=== PATIENT | male | born 1995 | race Caucasian/White ===

== ENCOUNTER 2017-03-09 08:37 | Day surgery (SDC) | payer OTHER ==
[~2017-03-09] VITALS: Ht 172.7 cm; Wt 57.0 kg
[~2017-03-09 08:37] MED LIST: 0.9% Sodium Chloride 1,000 ML IV SCH; DEXT10CA2 PO; DEXT5TAB PO; DEXT5TAB23 PO; FLUT16SP NS; OMEP20CA11 PO; Sodium Chloride LOK Flush 10 mL Syringe IV PRN; fentaNYL-PF 50 mCg/mL 2 mL Inj IVPUSH PRN
[2017-03-09 09:07] VITALS: BP 109/66; PULSE 71; RESP 14; O2SAT 98
[2017-03-09 09:56] VITALS: BP 104/60; PULSE 76; RESP 13; O2SAT 98
[2017-03-09 10:06] VITALS: BP 97/55; PULSE 68; RESP 16; O2SAT 99
--- NOTE | 2017-03-09 10:07 | ENDO ---
[address] [address] ENDOSCOPY PROCEDURE PATIENT: MARIA DEL ROSARIO CUMMINGS : 1995 MR#: [id number] ADMIT: 03/09/2017 JOB ID: [id number] OPERATION: Esophagogastroduodenoscopy and biopsy. PREOPERATIVE DIAGNOSIS(ES): 1. Epigastric pain. 2. Gastroesophageal reflux disease. POSTOPERATIVE DIAGNOSIS(ES): 1. Mild distal esophagitis. 2. Concentric rings with vertical furrows suspicious for eosinophilic esophagitis status post biopsy of the distal esophagus. ANESTHESIA: Fentanyl 100 mcg, Versed 5 mg IV administered. COMPLICATIONS: None. ESTIMATED BLOOD LOSS: Minimal. DESCRIPTION OF PROCEDURE: After risks and benefits to the patient, informed consent was obtained. After anesthesia administered, upper endoscope was then inserted into the mouth and intubated into the esophagus, stomach, second portion of duodenum. Mucosa carefully examined. After procedure was done, the scope withdrawn and procedure terminated. FINDINGS: Upon inspection of the esophagus, there was concentric rings and vertical furrows seen throughout the entire esophagus, suspicious for eosinophilic esophagitis. There is also mild distal soft esophagitis that was seen. Biopsies taken mid and distal esophagus. Z-line located 40 cm from incisors. Upon entering the stomach, the stomach was normal without masses, ulcers, or lesions. Retroflexion normal. Duodenal bulb, first and second portion normal. Biopsies taken antrum and body of the stomach. IMPRESSIONS: 1. Concentric rings and vertical furrows throughout the esophagus suspicious for eosinophilic esophagitis status post biopsy. 2. Mild distal esophagitis. RECOMMENDATION: 1. Await pathology results. 2. Stop marijuana. 3. Continue omeprazole 20 mg by mouth once a day.
[2017-03-09 10:16] VITALS: BP 96/55; PULSE 68; RESP 16; O2SAT 99
[2017-03-09 10:40] VITALS: BP 101/58; PULSE 72; RESP 14; O2SAT 100
--- NOTE | 2017-03-10 10:13 | PATH ---
SURGICAL PATHOLOGY Attending Physician:Jose Preston MD CASE STATUS: Signed Out PATIENT NAME: MARIA DEL ROSARIO CUMMINGS PID: [id number] : 1995 DATE COLLECTED:03/09/2017 15:51 SPECIMEN: 1: Stomach, Antrum, Biopsy 2: Gastric, Biopsy 3: Esophagus, Biopsy 4: Esophagus, Biopsy CLINICAL HISTORY: 1. ANTRUM BX 2. BODY BX 3. DISTAL ESOPHAGUS BX 4. MID ESOPHAGUS BX R/O EOSINOPHILIC ESOPHAGUS FINAL DIAGNOSIS: 1.ANTRUM BIOPSY: MILD CHRONIC GASTRITIS INVOLVING ANTRAL MUCOSA. Negative for evidence of Helicobacter. Negative for intestinal metaplasia. Negative for dysplasia and malignancy. 2.GASTRIC BODY BIOPSY: MILD CHRONIC GASTRITIS INVOLVING FUNDIC MUCOSA. Negative for evidence of Helicobacter. Negative for intestinal metaplasia. Negative for dysplasia and malignancy. 3.DISTAL ESOPHAGUS BIOPSY: SQUAMOUS EPITHELIUM WITH NO GASTRIC-TYPE EPITHELIUM IDENTIFIED. INTRAEPITHELIAL EOSINOPHILS PRESENT NUMBERING UP TO 5 PER HIGH-POWERED FIELD WITH ASSOCIATED REACTIVE EPITHELIAL CHANGES (SEE COMMENT). 4.MID ESOPHAGUS BIOPSY: SQUAMOUS EPITHELIUM WITH INTRAEPITHELIAL EOSINOPHILS NUMBERING UP TO 25 PER HIGH-POWERED FIELD WITH ASSOCIATED REACTIVE EPITHELIAL CHANGES CONSISTENT WITH EOSINOPHILIC ESOPHAGITIS (SEE COMMENT). ICD10 CODE K20.0 NOTE: The presence of eosinophils within the distal esophagus could be due to chronic reflux. In this case, however, when they are associated with larger numbers of eosinophils present in the mid esophagus it is most consistent with eosinophilic esophagitis. GROSS DESCRIPTION: The specimen is received in four formalin filled containers labeled with the patient's name. 1). The specimen is sublabeled "antrum" and consists of 2 portions of tissue which aggregate to 0.3 x 0.3 x 0.2 CM. The specimen is entirely submitted in cassette 1A. 2). The specimen is sublabeled "gastric body" and consists of 3 portions of tissue which aggregate to 0.4 x 0.3 x 0.3 CM. The specimen is entirely submitted in cassette 2A. 3). The specimen is sublabeled "distal esophagus" and consists of 3 portions of tissue which aggregate to 0.3 x 0.3 x 0.2 CM. The specimen is entirely submitted in cassette 3A. 4). The specimen is sublabeled "mid esophagus" and consists of 2 portions of tissue which aggregate to 0.2 x 0.2 x 0.1 CM. The specimen is entirely submitted in cassette 4A. 03/09/2017 DAC MICRO DESCRIPTION: See diagnosis. ICD-9 CODES: CPT CODES: 1: 06391 2: 47020 3: 52144 4: 29271 Electronically Signed Out Enrique Taylor MD [facility] [address], [place] [address] Technical component performed at [facility], [address], [place], [address]
== END 2017-03-09 23:59 | disposition home or self-care (01) ==
LOC: END 08:37
PROVIDERS: ATTEND Internal Medicine Gastroenterology
DX: K29.50 Unspecified chronic gastritis without bleeding (principal); K20.0 Eosinophilic esophagitis; K21.9 Gastro-esophageal reflux disease without esophagitis; F98.8 Other specified behavioral and emotional disorders with onset usually occurring in childhood and adolescence; F17.210 Nicotine dependence, cigarettes, uncomplicated; J30.1 Allergic rhinitis due to pollen
CPT/HCPCS: 43239; G0500; J7030

== ENCOUNTER → 2017-05-10 | Day surgery (SDC) | payer OTHER ==
[2017-05-10] VITALS (9 sets, daily range): BP systolic 114–128; BP diastolic 49–66; PULSE 71–94; RESP 4–19; O2SAT 98–100
[~2017-05-10] VITALS: Ht 175.3 cm; Wt 63.0 kg
[~2017-05-10] MED LIST changes: -0.9% Sodium Chloride 1,000 ML IV SCH; +Bupivacaine-MPF 0.5% 30 mL Inj INFILTRATE ONE; -DEXT10CA2 PO; +DEXT10TA8 PO; -DEXT5TAB PO; +Dexamethasone 4 mg/mL Inj IVPUSH PRN; +Dexamethasone 4 mg/mL Inj ONE; +EPHEDrine Sulfate 50 mg/mL Inj IVPUSH PRN; +EPHEDrine/NS 5 mg/mL 5 mL Syringe ONE; -FLUT16SP NS; +Glycopyrrolate 0.2 MG/ML 1mL Inj ONE; +HYDROmorphone 1 mg/mL Inj IVPUSH PRN; +Lactated Ringer's 1,000 ML IV SCH; +Lactated Ringer's 500 ML IV PRN; +Levofloxacin 500 mg/100 mL D5W IV ONE; +MetoCLOpramide 5 mg/mL 2 mL Inj IVPUSH PRN; +Neostigmine 1 mg/mL 10 mL Inj ONE; -OMEP20CA11 PO; +OMEP20TA86 PO; +Ondansetron 2 mg/mL 2 mL Inj IVPUSH PRN; +Ondansetron 2 mg/mL 2 mL Inj ONE; +Phenylephrine 10,000 mCg/mL Inj IVPUSH PRN; +Propofol 10,000 mCg/mL 20 mL Inj ONE; +Remifentanil 1 mg/3 mL Inj ONE; +Rocuronium 10 mg/mL 5 mL Inj ONE; -Sodium Chloride LOK Flush 10 mL Syringe IV PRN; +fentaNYL-PF 50 mCg/mL 2 mL Inj ONE; +oxyCODONE-Acetamin 5-325 mg Tablet PO PRN
[2017-05-10] MEDS: Lactated Ringer's 1,000 ML IV SCH ×2 (05:45→07:28)
--- NOTE | 2017-05-10 08:10 | PCM.HPANE ---
Patient Data Surgeon Admitting Provider: Attending Provider:Janette Green MD Primary Care Physician:Dee Cruz Other Provider:Gerda Ashley Anesthesia Reason for Visit Gallstone Pancreatitis Ht/WT & BMI Height (Feet): 5 Height (Inches): 9.00 Weight (Kilograms): 63.000 Body Mass Index 20.00 Allergies Coded Allergies: No Known Drug Allergies (Verified Allergy, Unknown, 05/03/17) Uncoded Allergies: STRAWBERRIES, CHERRIES, BLUEBERRIES (Allergy, Unknown, throat swelling, ) can tolerate fruit when it is cooked- reaction to most fruit in raw state Past Anesthesia History Anesthesia History: Denies:: Abnormal Airway, Anesthesia Reactions, Difficult Intubation, Fam Anesthesia Reaction, Fam Malignant Hypertherm, Malignant Hyperthermia Diabetes History Hx Diabetes?: No MRSA MRSA: No Medications Hypertension Medication: No Home Meds Incl Beta Ned: No Reported Medications Omeprazole 20 Mg Tablet.dr20 Mg PO BID Ref 0 05/03/17 Discontinued Reported Medications Dextroamphetamine/Amphetamine (Adderall)5 Mg Tablet5 Mg PO QPM Ref 0 05/03/17 Dextroamphetamine/Amphetamine (Adderall)10 Mg Zetamx19 Mg PO QAM Ref 0 05/03/17 Omeprazole 20 Mg Capsule.dr20 Mg PO DAILY Ref 0 03/08/17 History History of ENT Problems?: No HEENT History: Denies:: Abnormal Airway Difficult Intubation Dysphagia Hearing Problem Sinus Problem Denture Type: None Teeth Condition: Within Normal Limits Hx of Heart Problems?: No Cardiovascular History: Denies:: Congestive Heart Failure Hypertension Hx of Respiratory Problem?: No Respiratory History: Denies:: Asthma COPD Emphysema Oxygen Administration Tuberculosis Use of C-PAP Machine Use of Inhalers / NEBS Hx Neurologic Problems?: No Neurological History: Denies:: CVA Dementia Dizziness Multiple Sclerosis Parkinson's Disease Seizures Hx of GI Problems?: Yes Hx of Problems?: No Male Hx: Denies:: Prostate Problems Scrotal Mass Testicular Surgery Skin History: Denies:: History Skin Disorders? Pressure Ulcers Hx Musculoskeletal Problems?: No Musculoskeletal History: Denies:: Joint Replacement Musculoskeletal Trauma Myasthenia Gravis Osteoarthritis Hx of Psycho/Social Problems?: Yes Psycho Social History: Denies:: Anxiety Hx Depression Hx Surgeries?: Yes (dental as child) Hx Any Other Health Problems?: Yes Other History: Denies:: Cancer Thyroid Disease Hx Diabetes: No Hx Alcohol Use: YesAlcoholic Drinks Per Day: 1-2 drinks weeklyHx Substance Use : Yes (marijuana daily (inhales)) Smoking Status: Current Some Day Smoker Have You Smoked inLast 12 mo: Yes Stop/Bang S-Snoring: Do You Snore Loudly: No T-Tired: feel tired, fatigued: No O-Obsered: Observed not breath: No P-Blood Pressure: treated: No B- Body Mass Index > 35 kg/m2: No A- Age over 50: No N- Neck Large Circumference: No G- Gender Male: Yes JOSE Total Score: 1 JOSE Risk Assessment: Low Risk, <3 Yes Risk Assessment Category Category 1A: Patient has history of documented sleep apnea, and HAS NOT received any narcotic, sedative or anesthesia administration during this stay. Category 1B: Patient has history of documented sleep apnea, and HAS received any narcotic , sedative or anesthesia administration during this stay Category 2: Patient has SUSPECTED Obstructive Sleep Apnea, and HAS received any narcotic , sedative or anesthesia administration during this stay. Category 3: Patient has SUSPECTED Obstructive Sleep Apnea and HAS NOT received narcotic, sedative or anesthesia administration during this stay. Category 4: Outpatient in Procedural Areas with known sleep apnea or who screen positive for High Risk via the STOP/BANG questionnaire. Exam Exam Vital Signs Vital Signs Date Time Temp Pulse Resp B/P Pulse Ox O2 Delivery O2 Flow Rate FiO2 05/10/17 06:12 36.3 71 16 124/66 100 Room Air General Appearance: Alert HEENT/AIRWAY: MP 2, Neck Movement (from, 3 fb) Lungs: Clear to Auscultation Heart: Regular Rate/Rhythm Meds/Labs/Diagnostics Admission Meds Current Medications Lactated Ringer's (Lr) 1,000 ml @ 120 mls/hr Q8H20M IV Last administered on 05:45; Start 05/10/17 at 05:00; Stop 05/10/17 at 13:19 Gabapentin (Neurontin) 600 mg PREOP ONCE PO Last administered on 05/10/17 06: 00; Start 05/10/17 at 06:00; Stop 05/10/17 at 06:01; Status DC Celecoxib (CeleBREX) 200 mg PREOP ONCE PO Last administered on 05/10/17 06:00 ; Start 05/10/17 at 06:00; Stop 05/10/17 at 06:01; Status DC Scopolamine (Transderm-Scop Patch) 1.5 mg ONCE ONCE TOPICAL Last administered on 05/10/17 06:00; Start 05/10/17 at 05:00; Stop 05/10/17 at 05:01; Status DC Acetaminophen (Tylenol) 650 mg PREOP ONCE PO Last administered on 05/10/17 06 :00; Start 05/10/17 at 06:00; Stop 05/10/17 at 06:01; Status DC Plan Impression Patient chart reviewed, patient interviewed and anesthestic plan with risks, benefits, and alternatives discussed, and informed consent obtained. NPO per Anesth. Guidelines: Yes ASA Physical Status: ASA2 Mod Systemic Disease Anesthetic Plan: GA Bene/Risks/Altern/Consents: Yes HP Complete Prior to Induction: Yes Other Discussed GETA. All questions were answered and he agrees to proceed. Norman Carter MD May 10, 2017 07:08
--- NOTE | 2017-05-10 09:57 | PCM.ANEP1 ---
Post Anesthesia PACU Phase 1 Assessment Vital Signs Vital Signs Date Time Temp Pulse Resp B/P Pulse Ox O2 Delivery O2 Flow Rate FiO2 05/10/17 09:50 37 82 17 128/59 100 Simple Mask 10 05/10/17 06:12 36.3 71 16 124/66 100 Room Air Anesthetic Administered: GA Level of Alertness: Awake, talking FIGUEROA's with Equal Strength: Yes Pain: No Nausea or Vomiting: No CV Function & Hydration Stable: Yes Airway Device: Oxygen Delivery: Simple Mask Lungs: Clear to Auscultation Dermatome Level: Full Sensation PACU Phase 2 Assessment Complications: No Follow up Care: No Patient Instructions Provided: N/A Norman Carter MD May 10, 2017 09:57
--- NOTE | 2017-05-10 09:57 | PCM.DISURG ---
Surgical Discharge Instruction Date of Service May 10, 2017 Dates of Hospitalization Date of Hospital Admission Providers Admitting Physician: Primary Care Physician: Dee Cruz Attending Physician: Janette Green MD Diet Discharge Diet: No restrictions Activity Discharge Activity-General: Be up and about, Activity as pain allows, No lifting >15 pounds for 2 weeks, No driving while taking narcotic Dressing and Incisional Care Dressing Care: Allow Steri Stripes to fall off, Remove outer dressing after 24 hrs Hygiene: May shower after (24 hours), DO NOT soak incision under water, NO bathtub, hot tub or whirlpool Follow Up Plan Follow Up Plan Follow up in the general surgery clinic in the next 2-4 weeks. Call at any time with questions or concerns. Call your provider for: Fever, Chills, Increasing abdominal pain, Nausea, Vomiting, Wound redness, Increasing wound pain, Discharge @ incision, pus discharge Logan Dietz MD May 10, 2017 09:57
--- NOTE | 2017-05-10 10:08 | OP ---
[address] [address] OPERATIVE REPORT PATIENT: MARIA DEL ROSARIO CUMMINGS : 1995 MR#: [id number] ADMIT: 05/10/2017 JOB ID: [id number] DATE OF SURGERY: 05/10/2017 PREOPERATIVE DIAGNOSIS(ES): Cholelithiasis. POSTOPERATIVE DIAGNOSIS(ES): Cholelithiasis. PROCEDURE PERFORMED: Laparoscopic cholecystectomy with cholangiogram. SURGEON: Janette Green MD ZIGZAG MACHINE OPERATOR: Logan Dietz MD and Hernandez Benites MS-3. COMPLICATIONS: None. PROCEDURE PERFORMED: Laparoscopic cholecystectomy with cholangiogram. INDICATIONS: The patient is a 21-year-old gentleman who has been struggling with intermittent abdominal pain over the last year. He went to the emergency department as early as August 2016 and was diagnosed with gallstones, but he has never met a surgeon before. He then was seen by Dr. Preston in Gastroenterology who had an upper endoscopy and then had a repeat CT and ultrasound and saw me in surgical consultation in March. After discussing the risks, benefits, and alternatives, he is here today for a lap hari with cholangiogram. PROCEDURE DETAILS: He was placed in a supine position, underwent smooth induction of general anesthesia. Abdomen was prepped and draped in the usual sterile fashion. Surgical time-out was undertaken using safety checklist, and all were in agreement. Began by making an infraumbilical incision and entered the abdomen using open Leidy technique and Optiview trocar. We then up sized to a 12 mm and then placed three 5 mm ports one in the epigastrium and two in the right upper quadrant. Then retracted the gallbladder cephalad to the right with the patient in reverse Trendelenburg position and dissected with the triangle of Calot anteriorly and posteriorly and divided the cystic artery between clips. We then dissected the cystic duct and clipped the duct towards the specimen and obtained a cholangiogram, which showed normal anatomy with no filling defects. After that we removed the cholangiogram catheter and clipped the cystic duct doubly on the patient's side and divided the duct. We then dissected the gallbladder off the liver bed. We did get into the gallbladder with some spillage of bile, but we irrigated and suctioned out all the bile from the right upper quadrant after placing the gallbladder in an EndoCatch bag. After ensuring good hemostasis, we removed the gallbladder within the EndoCatch bag through the umbilical port site after enlarging the fascial incision. We then closed the fascia with [id number] 0-Vicryl suture. The skin was reapproximated with 4-0 Monocryl. Steri-Strips and sterile dressing were applied. Patient was recovered from anesthesia and was taken to the recovery room in stable condition. ADELITA
--- NOTE | 2017-05-10 12:03 | DRSVH ---
PROCEDURE: X-RAY OPERATIVE CHOLANGIOGRAM ([id number]) INDICATIONS: GALLSTONE PANCREATITIS COMPARISON: [facility], CT, CT ABD PELVIS W CON, 04/13/2017, 11:45. [facility] al, US, US ABDOMEN, 04/13/2017, 10:09. FINDINGS: Biliary ducts: The surgeon injected contrast into the biliary ducts after cannulation of the cystic duct. Visualized intra- and extrahepatic bile ducts are normal in caliber, without strictures. Sever al small intraluminal filling defects seen within the distal common bile duct just proximal to the am alla. No evidence for iatrogenic ductal injury. Duodenum: Contrast flows promptly through the sphincter of Oddi into the duodenum, which appears nor mal in caliber. IMPRESSION: Several small distal common bile duct filling defects just proximal to the ampulla which could be related to retained stones and/or tumefactive sludge. Recommend clinical correlation with r eal-time examination and if indicated ERCP or MRCP could be performed. Dictated by: Cory Amaya [facility] Interpreted: Esteban Reyes MD on 05/10/2017 at 10:28 Approved by: Esteban Reyes M.D. on 05/10/2017 at 12:01
--- NOTE | 2017-05-12 09:58 | PATH ---
SURGICAL PATHOLOGY Attending Physician:Janette Green MD CASE STATUS: Signed Out PATIENT NAME: MARIA DEL ROSARIO CUMMINGS PID: [id number] : 1995 DATE COLLECTED:05/10/2017 16:39 SPECIMEN: Gallbladder CLINICAL HISTORY: GALLSTONE, PANCREATITIS 1). GALLBLADDER FINAL DIAGNOSIS: Gallbladder, Cholecystectomy: - Cholelithiasis and chronic cholecystitis. - Negative for neoplasm. ICD10: K80 K81.1 GROSS DESCRIPTION: The specimen is received in one formalin filled container labeled with the patient's name, sub labeled "gallbladder" and consists of an intact the left and 4.0 x 2.5 and 2.5 CM gallbladder. The serosa is smooth. The wall is 0.1-0.3 CM in thickness. The mucosa is a light green in color. The lumen contains approximately 50-75 yellow negrete calculi which range in size from less than 0.1-0.7 CM in greatest dimension. 5 sales service representative sections are submitted in one cassette. 05/10/2017DC ICD-9 CODES: CPT CODES: 1: 00247 Electronically Signed Out Celso Sanchez MD [facility] [address], [place] [address] Technical component performed at [facility], [address] [place] [address] Ave[address], [place], [address]
== END | disposition home or self-care (01) ==
LOC: SAS 05:42
PROVIDERS: ATTEND Student in an Organized Health Care Education/Training Program
DX: K80.10 Calculus of gallbladder with chronic cholecystitis without obstruction (principal); K21.9 Gastro-esophageal reflux disease without esophagitis; F90.9 Attention-deficit hyperactivity disorder, unspecified type; J30.9 Allergic rhinitis, unspecified; Z72.0 Tobacco use
CPT/HCPCS: 47563; 74300; C1713; J1100; J2250; J2405; J2710; J3010; J7120; Q9967